=== PATIENT | female | born 1965 | race Caucasian/White ===

== ENCOUNTER 2019-06-25 08:49 | Emergency (ER) | payer SELFPAY ==
--- NOTE | 2019-06-25 09:01 | XR_ITS ---
WS: [id number] XR chest 2V* 91148 REASON FOR EXAM: cough fever FINDINGS: The heart and mediastinal interfaces normal. A mild scoliotic curve convex to the right. There is calcified granulomas in both perihilar areas. There is no pneumonia, pleural effusion, pulmonary edema, or mass effect. No pneumothorax. The hilum and apices are normal. XR/XR chest 2V* [id number] IMPRESSION: Scattered granulomas no active changes.
[2019-06-25 09:04] VITALS: BP 133/75; PULSE 94; RESP 20; TEMP 37.6; O2SAT 94; BMI 27.6
[2019-06-25 09:38] LABS: Influenza A by IFA Negative (Negative); Influenza B by IFA Negative (Negative)
--- NOTE | 2019-06-25 11:02 | W.ED.GENADLT ---
HPI - General Adult General: Chief complaint: General Medical Stated complaint: FEVER,COUGH Time Seen by Provider: 06/25/19 09:01 Source: patient Mode of arrival: ambulatory Limitations: no limitations History of Present Illness: HPI narrative: Patient comes in today with complaints of cough and wheezing. Patient has a history of some mild asthma that is usually set off by allergies. Patient appears in no distress. Patient appears in no pain. Patient appears mildly unwell. Patient is a smoker. Associated symptoms: Reports dyspnea Review of Systems General: Reports: 10 or more systems reviewed and unremarkable except in HPI and below Resp: Reports: shortness of breath and wheezing PFS ED PFSH: Social History Smoking and tobacco status: current every day smoker Physical Exam Const: COMMON NORMALS: no apparent distress and oriented x3 GENERAL APPEARANCE: cooperative HENMT: COMMON NORMALS: normocephalic, external ears normal, EAC's normal, TM's normal bilaterally and external nose normal HEAD & SCALP: normal to inspection and normocephalic FACE & SINUS: normal facial exam NOSE: external nose normal GENERAL EAR: hearing not grossly impaired EXTERNAL EAR: Yes external ears normal EXTERNAL AUDITORY CANAL: EAC's normal TYMPANIC MEMBRANE: TM's normal bilaterally MOUTH: oral and palatal mucosa normal THROAT: posterior oropharynx normal Eye: COMMON NORMALS: PERRL and EOMs intact bilaterally PUPIL: Yes PERRL Neck/C-Spine: COMMON NORMALS: full ROM and no lymphadenopathy Lymph: LYMPHATIC: no lymphedema noted Chest: COMMONS NORMALS: inspection of chest normal and palpation of chest normal Resp: COMMON NORMALS: normal respiratory effort AUSCULTATION: wheezes (mild, ) scattered wheezes Cardio: COMMON NORMALS: regular rate and regular rhythm RATE: regular rate RHYTHM: regular rhythm GI: COMMON NORMALS: normal to inspection, nondistended, normoactive bowel sounds and non-tender : COMMON NORMALS: Yes no CVA tenderness BLADDER/KIDNEY EXAM: Yes no CVA tenderness Back/Pelvis: COMMON NORMALS: no CVA tenderness and thoracic and lumbar spine normal to inspection Extremity: COMMON NORMALS: normal to inspection GENERAL: No edema Neuro: COMMON NORMALS: oriented x3, moves all extremities and no focal motor deficits Psych: COMMON NORMALS: mental status grossly normal and cooperative Skin: COMMON NORMALS: no rashes or lesions noted GENERAL SKIN EXAM: no rashes or lesions noted Course Vital Signs: Vital signs: Vital Signs Temperature 99.7 F H 06/25/19 09:04 Pulse Rate 94 06/25/19 09:04 Respiratory Rate 20 H 06/25/19 09:04 Blood Pressure 133/75 06/25/19 09:04 Pulse Oximetry 94 06/25/19 09:04 MDM - General Adult MDM Narrative: Medical decision making narrative: Patient comes in today with complaints of fever, cough, and shortness of breath. Exam notes good air movement throughout lung [place] with only mild and scattered wheeze occasionally. Skin is warm and dry color is pink. Vital signs are stable. Differential diagnosis includes pneumonia, influenza, bronchitis, asthma, upper respiratory infection. Influenza test was negative. Chest x-ray was was negative for infiltrate. Reviewed exam with patient recommended treatment for bronchitis with steroid and doxycycline. Also recommended albuterol inhaler for wheezing and shortness of breath. Patient reported understanding and agreed with plan. Lab Data: Labs: Lab Results 06/25/19 Range/Units 09:07 Influenza Type A A g Negative (Negative) POC Influenza B Ag Negative (Negative) Discharge Plan Discharge Patient Disposition: Home, Self-Care Clinical Impression: Acute asthmatic bronchitis Condition: Stable Prescriptions: New prednisone 20 mg tablet 20 mg PO DAILY Qty: 3 RF: 0 doxycycline hyclate 100 mg capsule 100 mg PO BID 7 Days Qty: 14 RF: 0 albuterol sulfate 90 mcg/actuation HFA aerosol inhaler 2 inh INHALATION Q4H PRN (Reason: shortness of breath or wheezing) Qty: 8.5 RF: 0 Discharge Orders: Discharge Order (Routine); Ordered 06/25/19 Ordered By: Travis Epps Referrals: Manuel Buitrago MD [Family Provider] - Discharge Diet: Usual diet Discharge Activity: Resume usual activity Patient Instructions: Acute Bronchitis (ED) Activity Restrictions/Additional Instructions: Drink plenty of fluids Medications as directed Follow-up with primary care in one week Return to ER for increased shortness of breath or new concerns Coding Level of Care Code ED Waste[employer] Manager for Giuseppe Fwconchita Exam Comprehensive
[2019-06-25 11:10] VITALS: BP 109/68; PULSE 74; RESP 18; TEMP 37.1; O2SAT 94
== END 2019-06-25 11:15 | disposition home or self-care (01) ==
PROVIDERS: Emergency Provider Nurse Practitioner Family; Family Provider Family Medicine
DX: J45.909 Unspecified asthma, uncomplicated (principal); F17.200 Nicotine dependence, unspecified, uncomplicated
CPT/HCPCS: 71046; 87804; 99281; 99283

== ENCOUNTER 2023-09-02 16:22 | Emergency (ER) | payer SELFPAY ==
[2023-09-02 16:34] VITALS: BP 146/80; PULSE 91; RESP 17; TEMP 36.8; O2SAT 97; BMI 27.8
[2023-09-02 18:21] VITALS: BP 154/82; PULSE 94; RESP 16; O2SAT 95
--- NOTE | 2023-09-02 18:29 | ED_ITS ---
Documented by User: JAKY Mcnulty 09/02/23 20:01 HPI - Dizziness 2 General: Chief Complaint: Dizziness Stated Complaint: blurred vison, elavated hr, headache Time Seen by Provider: 09/02/23 18:13 Source: patient Mode of arrival: ambulatory Limitations: no limitations History of Present Illness: HPI Narrative: Patient is a 58-year-old female presenting to the emergency department complaining of dizziness onset earlier today. Patient notes she had a couple water with a pinch of Celtic sea salt, and notes sudden onset of the dizziness, confusion, and feeling like she was going to pass out. She states she would have not come to the emergency department if it went in for an elevated blood pressure reading of 140 systolic, stating this is high for her. 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 She denies any chest pain, breathing difficulties, oropharyngeal swelling, rash, syncopal episodes, or any other symptoms. She also states that she is starting to feel better and does not feel confused or dizzy anymore. She is also complaining of some suprapubic abdominal pain and urinary symptoms, stating that she believes she has a urinary tract infection. Associated symptoms: Denies chest pain, chills, diaphoresis, headache(s), nausea, palpitations or vomiting Associated neuro symptoms: Reports confusion; Deny numbness in extremities Review of Systems 2 General: Reports: 10 or more systems reviewed and unremarkable except in HPI and below Const: Denies: fever(s), chills, change in appetite, change in weight or diaphoresis ENMT: Denies: throat pain or hoarseness Card: Reports: lightheadedness; Denies: chest pain or palpitations Resp: Denies: dyspnea, productive cough or wheezing GI: Denies: abdominal pain, nausea, vomiting, diarrhea, constipation, bloating, change in stool character or hematochezia : Reports: dysuria and pelvic pain; Denies: flank pain, difficulty voiding, urinary frequency or urinary urgency Musc: Denies: neck pain or back pain Skin/Breast: Denies: rash or new lesions Neuro: Reports: dizziness and confusion; Denies: headache(s), numbness in extremities, weakness in extremities, sensory changes, behavioral changes or Slurred speech present PFS ED 2 PFSH: Social History Smoking and tobacco/nicotine status: current every day tobacco/nicotine user Physical Exam 2 Const: COMMON NORMALS: no acute distress, patient oriented x3 and no limitations GENERAL APPEARANCE: cooperative, comfortable and well developed ORIENTATION/CONSCIOUSNESS: Yes awake, Yes oriented to person, Yes oriented to place and Yes oriented to time HENMT: COMMON NORMALS: normocephalic, atraumatic and hearing grossly normal bilaterally HEAD & SCALP: normocephalic and atraumatic Eye: COMMON NORMALS: Equal, round and reactive pupils present, EOMs intact bilaterally and conjunctivae normal CONJUNCTIVA: Yes conjunctivae normal P UPIL: Yes Equal, round and reactive pupils present Neck/C-Spine: COMMON NORMALS: full ROM, supple and no JVD Resp: COMMON NORMALS: normal respiratory effort, No retractions, No use of accessory muscles and clear to auscultation bilaterally AUSCULTATION: clear to auscultation bilaterally Cardio: COMMON NORMALS: no JVD, regular rate, regular rhythm, No clicks present (Cardio), No murmurs present (Cardio) and No rub (Cardio) RATE: r egular rate RHYTHM: regular rhythm GI: COMMON NORMALS: Normal to inspection, nondistended, normoactive bowel sounds present, Soft to palpation and non-tender AUSCULTATION: Yes normoactive bowel sounds PALPATION: Yes Soft to palpation RECTAL EXAM: d eferred : COMMON NORMALS: Yes no CVA tenderness BLADDER/KIDNEY EXAM: Yes no CVA tenderness Back/Pelvis: COMMON NORMALS: no CVA tenderness, thoracic and lumbar spine normal to inspection, no thoracic nor lumbar tenderness and thoraco-lumbar ROM normal Extremity: COMMON NORMALS: normal to inspection, full ROM and capillary refill normal Neuro: COMMON NORMALS: patient oriented x3, CN's II-XII intact bilaterally, moves all extremities, no focal motor deficits and no sensory deficits noted SENSORIUM/ORIENTATION: Yes oriented to person, Yes oriented to place and Yes oriented to time Psych: COMMON NORMALS: mental status grossly normal and Normal thought process present THOUGHT PROCESS: Normal thought process present Skin: COMMON NORMALS: no rashes or lesions noted GENERAL SKIN EXAM: no rashes or lesions noted Course 2 Vital Signs: Vital signs: Vital Signs Temperature 98.2 F 09/02/23 20:24 Pulse Rate 94 09/02/23 20:24 Respiratory Rate 16 09/02/23 20:24 Blood Pressure 154/82 09/02/23 20:24 Pulse Oximetry 95 09/02/23 20:24 Oxygen Delivery Me thod Room Air 09/02/23 18:21 MDM - Dizziness Medical Decision Making Patient seen for symptoms following ingestion of Celtic sea salt. She states that this caused confusion dizziness and high blood pressure that warranted presentation to the ED. On arrival her vitals unremarkable. She had stated that her symptoms were improving. Lab evaluation essentially unremarkable. EKG was normal. UA did show evidence of urinary tract infection, will treat patient with Macrobid. Patient likely did have a reaction to the substance, I informed her to avoid this in the future. Some of her symptoms also possibly due to the urinary tract infection, and I informed her of this. However, I did inform her to keep a log of her blood pressures to report to primary care when she follows up with them next week. Return precautions were given, to which she agrees. She is encouraged to increase her fluid intake. Lab Data I reviewed the patient's lab results. 09/02/23 18:43 09/02/23 18:43 Laboratory Results WBC 12.76 10^3/uL (3.29-11.43) H 09/02/23 18:43 RBC 4.77 10^6/uL (3.85-5.65) 09/02/23 18:43 Hgb 12.90 g/dL (11.27-16.99) 09/02/23 18:43 Hct 40.1 % (36-47) 09/02/23 18:43 MCV 84.1 fl (85-98) L 09/02/23 18:43 MCH 27.0 pg (27-33) 09/02/23 18:43 MCHC 32.2 g/dL (30-55) 09/02/23 18:43 RDW 13.7 % (12.1-15.1) 09/02/23 18:43 Plt Count 348 10^3/cmm (157-399) 09/02/23 18:43 MPV 9.9 fL (7.4-10.4) 09/02/23 18:43 Neut % (Auto) 77.7 % 09/02/23 18:43 Lymph % (Auto) 15.5 % 09/02/23 18:43 Parker % (Auto) 5.7 % 09/02/23 18:43 Eos % (Auto) 0.6 % 09/02/23 18:43 Baso % (Auto) 0.2 % 09/02/23 18:43 Neut # (Auto) 9.90 10^3/uL (1.8-7.7) H 09/02/23 18:43 Lymph # (Auto) 2.0 10^3/uL (0.8-4.8) 09/02/23 18:43 Parker # (Auto) 0.7 10^3/uL (0.2-0.9) 09/02/23 18:43 Eos # (Auto) 0.1 10^3/uL (0.0-0.8) 09/02/23 18:43 Baso # (Auto) 0.0 10^3/uL (0.0-0.1) 09/02/23 18:43 Nucleated RBC % (auto) 0 % 09/02/23 18:43 Nucleated RBCs # 0.0 /100WBC 09/02/23 18:43 Sodium 135 mmol/L (136-145) L 09/02/23 18:43 Potassium 3.9 mmol/L (3.5-5.1) 09/02/23 18:43 Chloride 100 mmol/L (98-107) 09/02/23 18:43 Carbon Dioxide 23 mmol/L (22-29) 09/02/23 18:43 Anion Gap 15.9 (5-19) 09/02/23 18:43 BUN 9 mg/dL (6-20) 09/02/23 18:43 Creatinine 0.7 mg/dL (0.5-0.9) 09/02/23 18:43 GFR Calculation 86.6 mL/min (90-130) L 09/02/23 18:43 Glucose 117 mg/dL (65-115) H 09/02/23 18:43 Calculated Osmolality 280 mOsm/kg (285-295) L 09/02/23 18:43 Lactic Acid 1.5 mmol/L (0.5-2.2) 09/02/23 18:43 Calcium 9.1 mg/dL (8.5-10.5) 09/02/23 18:43 Total Bilirubin 0.3 mg/dL (0.15-1.2) 09/02/23 18:43 AST 25 U/L (0-32) 09/02/23 18:43 ALT 35 U/L (0-33) H 09/02/23 18:43 Alkaline Phosphatase 106 U/L (35-105) H 09/02/23 18:43 C-Reactive Protein 9.6 mg/L (0.0-4.9) H 09/02/23 18:43 Total Protein 7.0 g/dL (6.6-8.7) 09/02/23 18:43 Albumin 4.5 g/dL (3.5-5.2) 09/02/23 18:43 Globulin 2.5 g/dL (1.3-4.6) 09/02/23 18:43 Urine Color Straw (Yellow) 09/02/23 18:39 Urine Appearance Clear (CLEAR) 09/02/23 18:39 Urine pH 7 (5-7) 09/02/23 18:39 Ur Specific [place] 1.005 (1.005-1.030) 09/02/23 18:39 Urine Protein Neg (Negative) 09/02/23 18:39 Urine Glucose (UA) Norm (Normal) 09/02/23 18:39 Urine Ketones Negative (Negative) 09/02/23 18:39 Urine Blood 2+ (Negative) H 09/02/23 18:39 Urine Nitrate Negative (Negative) 09/02/23 18:39 Urine Bilirubin Neg (Negative) 09/02/23 18:39 Urine Urobilinogen Neg mg/dL (Negative) 09/02/23 18:39 Ur Leukocyte Esterase 1+ (Negative) H 09/02/23 18:39 Urine RBC 0-4 /hpf (0-2) H 09/02/23 18:39 Urine WBC 15-25 /hpf (0-5) H 09/02/23 18:39 Ur Squamous Epith Cells 0-4 /hpf (0-5) H 09/02/23 18:39 Amorphous Sediment Not Reportable 09/02/23 18:39 Urine Bacteria Trace /hpf (NONE) 09/02/23 18:39 No radiology studies performed this visit Discharge Plan Discharge Patient Disposition: Home Clinical Impression: Urinary tract infection Qualifiers: Urinary tract infection type: acute cystitis Hematuria presence: without hematuria Qualified Code(s): N30.00 - Acute cystitis without hematuria Allergic reaction Qualifiers: Encounter type: initial encounter Qualified Code(s): T78.40XA - Allergy, unspecified, initial encounter Condition: Stable Prescriptions: New nitrofurantoin macrocrystal 100 mg capsule 100 mg PO BID 7 Days Qty: 14 0RF Rx Instructions: must administer with a meal/food No Action prednisone 20 mg tablet 20 mg PO DAILY Qty: 3 0RF albuterol sulfate 90 mcg/actuation HFA aerosol inhaler 2 inh INHALATION Q4H PRN (Reason: shortness of breath or wheezing) Qty: 8.5 0RF Discharge Orders: Discharge ED (Routine); Ordered 09/02/23 Ordered By: Dev Van Referrals: Manuel Buitrago MD [Primary Care Provider] - Discharge Diet: Usual diet Discharge Activity: Increase activity as tolerated Patient Instructions: Urinary Tract Infection in Women (ED) Activity Restrictions/Additional Instructions: Macrobid. Plenty of fluids. Keep a log of your blood pressures to report to your primary care provider. Follow-up with primary care as needed. Return with any new or concerning symptoms you may have. Coding Level of Care Code ED Tacker Elastic Band for Chg Fwd Documented by User: Teja Antunez DO 09/06/23 09:15 HPI - Dizziness 2 General: Chief Complaint: Dizziness Stated Complaint: blurred vison, elavated hr, headache Time Seen by Provider: 09/02/23 18:13 PFSH ED 2 PFSH: Social History Smoking and tobacco/nicotine status: current every day tobacco/nicotine user Course 2 Vital Signs: Vital signs: Vital Signs Temperature 98.2 F 09/02/23 20:24 Pulse Rate 94 09/02/23 20:24 Respiratory Rate 16 09/02/23 20:24 Blood Pressure 154/82 09/02/23 20:24 Pulse Oximetry 95 09/02/23 20:24 Oxygen Delivery Me thod Room Air 09/02/23 18:21 MDM - Dizziness Medical Decision Making Patient seen for symptoms following ingestion of Celtic sea salt. She states that this caused confusion dizziness and high blood pressure that warranted presentation to the ED. On arrival her vitals unremarkable. She had stated that her symptoms were improving. Lab evaluation essentially unremarkable. EKG was normal. UA did show evidence of urinary tract infection, will treat patient with Macrobid. Patient likely did have a reaction to the substance, I informed her to avoid this in the future. Some of her symptoms also possibly due to the urinary tract infection, and I informed her of this. However, I did inform her to keep a log of her blood pressures to report to primary care when she follows up with them next week. Return precautions were given, to which she agrees. She is encouraged to increase her fluid intake. Chart reviewed Lab Data 09/02/23 18:43 09/02/23 18:43 Laboratory Results WBC 12.76 10^3/uL (3.29-11.43) H 09/02/23 18:43 RBC 4.77 10^6/uL (3.85-5.65) 09/02/23 18:43 Hgb 12.90 g/dL (11.27-16.99) 09/02/23 18:43 Hct 40.1 % (36-47) 09/02/23 18:43 MCV 84.1 fl (85-98) L 09/02/23 18:43 MCH 27.0 pg (27-33) 09/02/23 18:43 MCHC 32.2 g/dL (30-55) 09/02/23 18:43 RDW 13.7 % (12.1-15.1) 09/02/23 18:43 Plt Count 348 10^3/cmm (157-399) 09/02/23 18:43 MPV 9.9 fL (7.4-10.4) 09/02/23 18:43 Neut % (Auto) 77.7 % 09/02/23 18:43 Lymph % (Auto) 15.5 % 09/02/23 18:43 Parker % (Auto) 5.7 % 09/02/23 18:43 Eos % (Auto) 0.6 % 09/02/23 18:43 Baso % (Auto) 0.2 % 09/02/23 18:43 Neut # (Auto) 9.90 10^3/uL (1.8-7.7) H 09/02/23 18:43 Lymph # (Auto) 2.0 10^3/uL (0.8-4.8) 09/02/23 18:43 Parker # (Auto) 0.7 10^3/uL (0.2-0.9) 09/02/23 18:43 Eos # (Auto) 0.1 10^3/uL (0.0-0.8) 09/02/23 18:43 Baso # (Auto) 0.0 10^3/uL (0.0-0.1) 09/02/23 18:43 Nucleated RBC % (auto) 0 % 09/02/23 18:43 Nucleated RBCs # 0.0 /100WBC 09/02/23 18:43 Sodium 135 mmol/L (136-145) L 09/02/23 18:43 Potassium 3.9 mmol/L (3.5-5.1) 09/02/23 18:43 Chloride 100 mmol/L (98-107) 09/02/23 18:43 Carbon Dioxide 23 mmol/L (22-29) 09/02/23 18:43 Anion Gap 15.9 (5-19) 09/02/23 18:43 BUN 9 mg/dL (6-20) 09/02/23 18:43 Creatinine 0.7 mg/dL (0.5-0.9) 09/02/23 18:43 GFR Calculation 86.6 mL/min (90-130) L 09/02/23 18:43 Glucose 117 mg/dL (65-115) H 09/02/23 18:43 Calculated Osmolality 280 mOsm/kg (285-295) L 09/02/23 18:43 Lactic Acid 1.5 mmol/L (0.5-2.2) 09/02/23 18:43 Calcium 9.1 mg/dL (8.5-10.5) 09/02/23 18:43 Total Bilirubin 0.3 mg/dL (0.15-1.2) 09/02/23 18:43 AST 25 U/L (0-32) 09/02/23 18:43 ALT 35 U/L (0-33) H 09/02/23 18:43 Alkaline Phosphatase 106 U/L (35-105) H 09/02/23 18:43 C-Reactive Protein 9.6 mg/L (0.0-4.9) H 09/02/23 18:43 Total Protein 7.0 g/dL (6.6-8.7) 09/02/23 18:43 Albumin 4.5 g/dL (3.5-5.2) 09/02/23 18:43 Globulin 2.5 g/dL (1.3-4.6) 09/02/23 18:43 Urine Color Straw (Yellow) 09/02/23 18:39 Urine Appearance Clear (CLEAR) 09/02/23 18:39 Urine pH 7 (5-7) 09/02/23 18:39 Ur Specific [place] 1.005 (1.005-1.030) 09/02/23 18:39 Urine Protein Neg (Negative) 09/02/23 18:39 Urine Glucose (UA) Norm (Normal) 09/02/23 18:39 Urine Ketones Negative (Negative) 09/02/23 18:39 Urine Blood 2+ (Negative) H 09/02/23 18:39 Urine Nitrate Negative (Negative) 09/02/23 18:39 Urine Bilirubin Neg (Negative) 09/02/23 18:39 Urine Urobilinogen Neg mg/dL (Negative) 09/02/23 18:39 Ur Leukocyte Esterase 1+ (Negative) H 09/02/23 18:39 Urine RBC 0-4 /hpf (0-2) H 09/02/23 18:39 Urine WBC 15-25 /hpf (0-5) H 09/02/23 18:39 Ur Squamous Epith Cells 0-4 /hpf (0-5) H 09/02/23 18:39 Amorphous Sediment Not Reportable 09/02/23 18:39 Urine Bacteria Trace /hpf (NONE) 09/02/23 18:39 Discharge Plan Discharge Patient Disposition: Home Clinical Impression: Urinary tract infection Qualifiers: Urinary tract infection type: acute cystitis Hematuria presence: without hematuria Qualified Code(s): N30.00 - Acute cystitis without hematuria Allergic reaction Qualifiers: Encounter type: initial encounter Qualified Code(s): T78.40XA - Allergy, unspecified, initial encounter Condition: Stable Prescriptions: New nitrofurantoin macrocrystal 100 mg capsule 100 mg PO BID 7 Days Qty: 14 0RF Rx Instructions: must administer with a meal/food No Action prednisone 20 mg tablet 20 mg PO DAILY Qty: 3 0RF albuterol sulfate 90 mcg/actuation HFA aerosol inhaler 2 inh INHALATION Q4H PRN (Reason: shortness of breath or wheezing) Qty: 8.5 0RF Discharge Orders: Discharge ED (Routine); Ordered 09/02/23 Ordered By: Dev Van Referrals: Manuel Buitrago MD [Primary Care Provider] - Discharge Diet: Usual diet Discharge Activity: Increase activity as tolerated Patient Instructions: Urinary Tract Infection in Women (ED) Activity Restrictions/Additional Instructions: Macrobid. Plenty of fluids. Keep a log of your blood pressures to report to your primary care provider. Follow-up with primary care as needed. Return with any new or concerning symptoms you may have. Coding Level of Care Code ED Tacker Elastic Band for Giuseppe Zavaleta
[2023-09-02 19:02] LABS: Bilirubin Urine Neg (Negative); Blood Urine 2+ (Negative); Glucose Urine UA Norm (Normal); Ketones Urine Negative (Negative); Nitrate Urine Negative (Negative); Protein Urine Neg (Negative); Specific Gravity, Urine 1.005 (1.005-1.030); Urine Appearance Clear (CLEAR); Urine Color Straw (Yellow); pH Urine 7 (5-7)
[2023-09-02 19:03] LABS: Bacteria Urine TRACE /hpf; Leukocyte Esterase Urine 1+ (Negative); RBC Urine 0-4 /hpf (0-2); Squamous Epithelial Cell Urine 0-4 /hpf (0-5); Urobilinogen Urine Neg (Negative); WBC Urine 15-25 /hpf (0-5)
[2023-09-02 19:09] LABS: Basophils % 0.2 %; Eosinophils # 0.1 10^3/uL (0.0-0.8); Eosinophils % 0.6 %; Hematocrit 40.1 % (36-47); Lymphocytes % 15.5 %; Mean Corpuscular HGB Conc 32.2 g/dL (30-55); Mean Corpuscular Volume 84.1 fl (85-98); Mean Platelet Volume 9.9 fL (7.4-10.4); Monocytes # 0.7 10^3/uL (0.2-0.9); Monocytes % 5.7 %; Neutrophils % 77.7 %; Nucleated Red Blood Cells % 0 %; Platelet Count 348 10^3/cmm (157-399); Red Blood Count 4.77 10^6/uL (3.85-5.65); Red Cell Distribution Width 13.7 % (12.1-15.1); White Blood Count 12.76 10^3/uL (3.29-11.43)
[2023-09-02 19:31] LABS: Lactic Sepsis W/Reflex 1.5 mmol/L (0.5-2.2)
[2023-09-02 19:33] LABS: Alanine Aminotransferase 35 U/L (0-33); Albumin Level 4.5 g/dL (3.5-5.2); Alkaline Phosphatase 106 U/L (35-105); Anion Gap 15.9 (5-19); Aspartate Amino Transferase 25 U/L (0-32); Blood Urea Nitrogen 9 mg/dL (6-20); C Reactive Protein 9.6 mg/L (0.0-4.9); Calcium 9.1 mg/dL (8.5-10.5); Carbon Dioxide 23 mmol/L (22-29); Chloride 100 mmol/L (98-107); Creatinine Clr Calc Pharmacy 78.4142; Globulin 2.5 g/dL (1.3-4.6); Glomerular Filtration Rate 86.6 mL/min (90-130); Glucose 117 mg/dL (65-115); Osmolality Calculated 280 mOsm/kg (285-295); Potassium 3.9 mmol/L (3.5-5.1); Sodium 135 mmol/L (136-145); Total Bilirubin 0.3 mg/dL (0.15-1.2)
[2023-09-02] MEDS: nitrofurantoin SR (BID) 100 mg Capsule PO (20:03)
[2023-09-02 20:24] VITALS: BP 154/82; PULSE 94; RESP 16; TEMP 36.8; O2SAT 95
== END 2023-09-02 20:05 | disposition home or self-care (01) ==
PROVIDERS: Emergency Medicine; Emergency Provider Physician Assistant; PCP Family Medicine
DX: N30.00 Acute cystitis without hematuria (principal); T78.40XA Allergy, unspecified, initial encounter; Z72.0 Tobacco use; X58.XXXA Exposure to other specified factors, initial encounter
CPT/HCPCS: 36415; 80053; 81001; 83605; 85025; 86140; 87040; 99284